=== PATIENT | male | born 2000 | race Asian ===

== ENCOUNTER 2022-01-19 22:04 | Emergency (ER) | payer BC, OTHER ==
[~2022-01-19] VITALS: Ht 180.3 cm; Wt 77.1 kg
[~2022-01-19 22:04] MED LIST: ALBU17AE26; CLARITIN
[2022-01-19 22:29] VITALS: BP_SYST 136
--- NOTE | 2022-01-19 22:30 | NUR ---
PT CAME FROM HOME WITH C/O COUGH AND LIGHTHEADEDNESS FOR ONE DAY, CLEAR SPUTUM. PT STATED HE SMOKE FROM A JOINT OF A SICK FRIEND AND STATES "I JUST FEEL REALLY SICK." PT TALKING IN FULL SENTENCES, EVEN AND UNLABORED BREATHES, NO SIGNS OF RESP DISTRESS. PT IS FEBRILE WITH TEMPORAL TEMP OF 100.8. DR. BALDERAS MADE AWARE.
--- NOTE | 2022-01-19 22:49 | NUR ---
ATTEMPTED TO PERFORM EKG ON PT. PT NOT FOUND IN TENT. DR. BALDERAS MADE AWARE.
--- NOTE | 2022-01-19 23:10 | NUR ---
ATTEMPTED TO PERFORM EKG ON PT. PT STILL NOT FOUND IN TENT.
--- NOTE | 2022-01-19 23:38 | NUR ---
PT NOT FOUND IN TENT. ATTEMPTED TO PERFORM EKG.
== END 2022-01-19 22:50 | disposition left against medical advice (07) ==
LOC: SED 22:04
DX: R50.9 Fever, unspecified (principal); Z79.899 Other long term (current) drug therapy; Z20.822 Contact with and (suspected) exposure to COVID-19; Z53.21 Procedure and treatment not carried out due to patient leaving prior to being seen by health care provider
CPT/HCPCS: 36415